=== PATIENT | female | born 1990 | race Caucasian/White ===

== ENCOUNTER 2021-10-29 08:47 | Outpatient (CLI) | payer OTHER, SELFPAY ==
[2021-10-29 11:43] LABS: Glucose* 85 mg/dL (60-115)
== END 2021-10-29 08:48 | disposition home or self-care (01) ==
PROVIDERS: Visit Provider Registered Nurse
DX: Z01.419 Encounter for gynecological examination (general) (routine) without abnormal findings (principal); Z13.1 Encounter for screening for diabetes mellitus
CPT/HCPCS: 82947